=== PATIENT | male | born 1960 | race Caucasian/White ===

== ENCOUNTER → 2016-09-06 | Outpatient (CLI) | payer OTHER | END | disposition home or self-care (01) | LOC: NM 07:00 | DX: R10.11 Right upper quadrant pain (principal); R10.9 Unspecified abdominal pain; R11.0 Nausea; R11.10 Vomiting, unspecified ==

== ENCOUNTER → 2016-09-24 | Outpatient (CLI) | payer OTHER ==
[2016-09-24 10:04] LABS: BUN 10 mg/dl (7-24); EST GLOM FILT AFRICAN AMERICAN > 60 ml/min
== END | disposition home or self-care (01) ==
LOC: LAB 09:33 → CT 10:00
PROVIDERS: Family Medicine
DX: R10.2 Pelvic and perineal pain (principal); R10.9 Unspecified abdominal pain

== ENCOUNTER → 2019-08-03 | Outpatient (CLI) | payer BC | END | disposition home or self-care (01) | LOC: CARD 09:01 | DX: R06.09 Other forms of dyspnea (principal) ==

== ENCOUNTER 2019-08-08 08:31 | Inpatient (IN) | payer BC ==
[2019-08-08] VITALS (17 sets, daily range): BP systolic 106–127; BP diastolic 65–80
[~2019-08-08] VITALS: Ht 188 cm; Wt 97.6 kg
[2019-08-08 09:15] LABS: MEAN CELL VOLUME 81.7 fl (80.0-94.0); MEAN CORPUSCULAR HGB 21.7 pg (27.0-31.0); MEAN CORPUSCULAR HGB CONC 26.5 g/dl (33.0-37.0); MEAN PLATELET VOLUME 12.8 fl (9.6-12.3); NUCLEATED RED BLOOD CELL 0.3 % (0.0-0.0); PLATELET COUNT AUTOMATED 130 10*3/uL (130-400); WHITE BLOOD COUNT 6.3 10*3/uL (4.8-10.8)
[2019-08-08 09:29] LABS: HEMATOCRIT 19.6 % (42.0-52.0); HEMOGLOBIN 5.2 g/dl (14.0-18.0)
--- NOTE | 2019-08-08 09:30 | NUR ---
PT WITH H&H @ 5.2 & 19.6,DR TYLER NOTIFIED.
[2019-08-08 09:38] LABS: ALBUMIN 3.6 gm/dl (3.1-4.5); ALKALINE PHOSPHATASE 56 U/L (45-117); BUN 19 mg/dl (7-24); CHLORIDE 100 mmol/L (98-107); CREATININE 1.23 mg/dL (0.70-1.30); POTASSIUM 5.1 mmol/L (3.5-5.1); SGOT/AST 56 IU/L (3-35); SGPT/ALT 52 U/L (12-78); SODIUM 131 mmol/L (136-145); TOTAL PROTEIN 7.6 gm/dL (6.4-8.2)
[2019-08-08 09:44] LABS: PLATELET SUFFICIENCY NORMAL (NORMAL); TOTAL CELLS COUNTED 100 #CELLS
[2019-08-08 09:45] LABS: BURR CELLS FEW; OVALOCYTES FEW; POLYCHROMASIA SLIGHT; ROULEAUX SLIGHT; TARGET CELLS FEW
--- NOTE | 2019-08-08 09:48 | NUR ---
PHIL @ 0.193 DR. TYLER NOTIFIED.
[2019-08-08 09:49] LABS: TROPONIN I 0.193 ng/ml (<0.045)
[2019-08-08 10:05] LABS: ACT PARTIAL THROMBO TIME 24.8 SECONDS (20.0-32.1); INTERNATIONAL NORM RATIO 1.1 (2.0-3.5)
--- NOTE | 2019-08-08 11:43 | NUR ---
RESTING IN NO ACUTE DISTRESS. COUGH CONTINUES AFTER ROBITUSSIN AC. BLOOD INFUSING NOW AT 150 CC/HR. WILL CONTINUE TO MONITOR.
--- NOTE | 2019-08-08 12:02 | NUR ---
TRIPONIN @ 0.164, DR TYLER NOTIFIED.
--- NOTE | 2019-08-08 12:54 | NUR ---
LACTIC ACID @ 5.4, DR TYLER NOTIFIED.
--- NOTE | 2019-08-08 13:17 | NUR ---
CALL FROM NURSING CHEMIST INSTRUMENTATION. THEY ARE UNABLE TO TAKE PT IN THE ICU UNTIL ADJUSTMENTS ARE MADE WITH STAFFING.
--- NOTE | 2019-08-08 14:10 | NUR ---
A 58, admitted to ICCU, under the services of YESICA Mitchell DO with a diagnosis of GI BLEED, ACUTE PULMONARY EDEMA. Chief complaint is COUGH, SOB, CHEST PAIN. Patient arrived via stretcher from ER. Monitor applied. Initial assessment completed. Vital signs taken and recorded. YESICA MITCHELL DO notified of admission to the unit. Orders received. See assessment for past medical history, medications and allergies. Patient and/or family oriented to unit. [facility] ICCU visitation policy reviewed. Clothing/patient valuable form completed. JOSE CUNNINGHAM
[2019-08-08] MEDS ORDERED: GLUCOPHAGE500 M1 PO (14:23)
[2019-08-08] MEDS ORDERED: FLUTICASONE-SA1 EAC4 INH (14:48)
[2019-08-08] MEDS ORDERED: PROAIR HFA8.5 GM INH (14:48)
[2019-08-08] MEDS ORDERED: OMEPRAZOLE40 MG PO (14:49)
[2019-08-08] MEDS ORDERED: LISINOPRIL2.5 MG PO (14:49)
--- NOTE | 2019-08-08 14:54 | NUR ---
PT MEDICATED WITH ROBITUSSIN PO FOR CONTINUOUS COUGH.
[2019-08-08] MEDS ORDERED: IBUPROFEN IB200 M1 PO (15:02)
--- NOTE | 2019-08-08 15:09 | NUR ---
DR VALENZUELA MADE AWARE OF PT'S LACTIC ACID OF 4.6 AND TROPONIN OF 0.421
--- NOTE | 2019-08-08 15:22 | NUR ---
DR HIDALGO NOTIFIED OF CONSULT IN ER AND SAW PT THERE.
--- NOTE | 2019-08-08 15:26 | NUR ---
MESSAGE LEFT ON DR LUNA'S VOICE MAIL TO MAKE HIM AWARE OF NEW CONSULT.
--- NOTE | 2019-08-08 19:00 | NUR ---
I SPOKE WITH DR HIDALGO AND MADE HIM AWARE OF TROPONIN LEVEL OF 0.421. HE STATED HE BELIEVES IT IS BECAUSE OF HIS GI BLEED, NO FURTHER ORDERS AT THIS TIME.
--- NOTE | 2019-08-08 19:30 | NUR ---
2ND TRANSFUSION OF BLOOD COMPLETED AT THIS TIME. PATIENT TOLERATED WELL, AND IS CURRENTLY DENYING ANY COMPLAINTS. RN WILL MONITOR
[2019-08-08 20:02] LABS: BASO % 0.2 % (0.0-1.0); HEMATOCRIT 21.4 % (42.0-52.0); LYMPH # 0.8 10*3/uL (1.3-4.4); LYMPH % 12.3 % (27.0-41.0); MEAN CELL VOLUME 81.1 fl (80.0-94.0); MEAN CORPUSCULAR HGB 23.9 pg (27.0-31.0); MEAN CORPUSCULAR HGB CONC 29.4 g/dl (33.0-37.0); MEAN PLATELET VOLUME 11.5 fl (9.6-12.3); MONO # 0.8 10*3/uL (0.1-1.0); MONO % 12.7 % (3.0-9.0); NEUT # 4.9 10*3/uL (2.3-7.9); NEUT % 73.9 % (47.0-73.0); NUCLEATED RED BLOOD CELL 0.1 10*3/uL (0.0-0.0); NUCLEATED RED BLOOD CELL 0.9 % (0.0-0.0); PLATELET COUNT AUTOMATED 133 10*3/uL (130-400); RED BLOOD COUNT 2.64 10*6/uL (4.50-5.90); RED CELL DISTRI WIDTH 17.5 % (0-14.5); WHITE BLOOD COUNT 6.6 10*3/uL (4.8-10.8)
[2019-08-08 20:13] LABS: HEMOGLOBIN 6.3 g/dl (14.0-18.0)
--- NOTE | 2019-08-08 20:17 | NUR ---
DR ECHEVARRIA MADE AWARE OF CRITICAL LABS. ORDERS RECIEVED
[2019-08-08 20:25] LABS: PLATELET SUFFICIENCY LOW (NORMAL); TOTAL CELLS COUNTED 100 #CELLS
[2019-08-08 20:26] LABS: BUN 25 mg/dl (7-24); CHLORIDE 100 mmol/L (98-107); CREATININE 1.26 mg/dL (0.70-1.30); OVALOCYTES FEW; POLYCHROMASIA SLIGHT; POTASSIUM 4.2 mmol/L (3.5-5.1); SODIUM 131 mmol/L (136-145)
--- NOTE | 2019-08-08 21:05 | NUR ---
PATIENT MEDICATED WITH ROBITUSSIN PER DRS ORDERS FOR CONTINUED COUGH, WELL MORPHINE PER DRS ORDERS FOR PAIN IN THE CHEST FROM COUGHING. RN WILL MONITOR FOR RELIEF OF SYMPTOMS
[2019-08-08 21:15] LABS: HEMATOCRIT 21.2 % (42.0-52.0); MEAN CELL VOLUME 79.4 fl (80.0-94.0); MEAN CORPUSCULAR HGB 23.2 pg (27.0-31.0); MEAN CORPUSCULAR HGB CONC 29.2 g/dl (33.0-37.0); MEAN PLATELET VOLUME 11.7 fl (9.6-12.3); NUCLEATED RED BLOOD CELL 0.1 10*3/uL (0.0-0.0); NUCLEATED RED BLOOD CELL 0.7 % (0.0-0.0); PLATELET COUNT AUTOMATED 140 10*3/uL (130-400); RED BLOOD COUNT 2.67 10*6/uL (4.50-5.90); RED CELL DISTRI WIDTH 17.4 % (0-14.5); WHITE BLOOD COUNT 7.1 10*3/uL (4.8-10.8)
[2019-08-08 21:18] LABS: HEMOGLOBIN 6.2 g/dl (14.0-18.0)
[2019-08-08 21:37] LABS: PLATELET SUFFICIENCY NORMAL (NORMAL); TOTAL CELLS COUNTED 100 #CELLS
[2019-08-08 21:38] LABS: OVALOCYTES FEW; POLYCHROMASIA SLIGHT; TARGET CELLS FEW
[2019-08-09] VITALS (14 sets, daily range): BP systolic 96–128; BP diastolic 58–82
--- NOTE | 2019-08-09 00:05 | NUR ---
PATIENT MEDICATED WITH RESTORIL PER DRS ORDERS FOR COMPLAINTS OF SLEEPLESSNESS AND ALSO MEDICATED WITH ROBITUSSIN FOR CONTINUED COUGH. RN WILL MONITOR FOR RELIEF OF SYMPTOMS
--- NOTE | 2019-08-09 00:10 | NUR ---
3RD UNIT OF PRBC INITIATED AT THIS TIME. PATIENT INFORMED OF SIGNS AND SYMPTOMS OF TRANFUSION REACTION AND WHEN TO MAKE THE NURSE AWARE. TRANSFUSION CONSENT REMAINS ON THE CHART. BASELINE VITAL SIGNS OBATINED. BLOOD PRODUCT VERIFIED WITH 2 RNS AT THE BEDSIDE
--- NOTE | 2019-08-09 00:25 | NUR ---
NO SIGNS OR SYMPTOMS OF TRANSFUSION REACTION. PATIENT DENIES COMPLAINTS. BLOOD TITRATED PER POLICY. PATIENT TOLERATING WELL. RN WILL CONTINUE TO MONITOR
--- NOTE | 2019-08-09 00:44 | NUR ---
RESPIRATORY CALLED REGARDING BREATHING TREATMENT.
--- NOTE | 2019-08-09 00:49 | NUR ---
RESPIRATORY IN WITH PATIENT, RECIEVEING BREATHING TREATMENT AT THIS TIME
--- NOTE | 2019-08-09 02:59 | NUR ---
3RD UNIT OF PRBC COMPLETED AT THIS TIME, VITAL SIGNS REMAIN STABLE AND PATIENT DENIES ANY SIGNS OR SYMPTOMS OF TRANSFUSION REACTION. WILL MONITOR
[2019-08-09 05:52] LABS: HEMATOCRIT 23.6 % (42.0-52.0); MEAN CELL VOLUME 79.7 fl (80.0-94.0); MEAN CORPUSCULAR HGB 23.6 pg (27.0-31.0); MEAN CORPUSCULAR HGB CONC 29.7 g/dl (33.0-37.0); NUCLEATED RED BLOOD CELL 0.1 10*3/uL (0.0-0.0); NUCLEATED RED BLOOD CELL 1.2 % (0.0-0.0); PLATELET COUNT AUTOMATED 140 10*3/uL (130-400); RED BLOOD COUNT 2.96 10*6/uL (4.50-5.90); RED CELL DISTRI WIDTH 17.6 % (0-14.5); WHITE BLOOD COUNT 7.7 10*3/uL (4.8-10.8)
[2019-08-09 06:06] LABS: INTERNATIONAL NORM RATIO 1.1 (2.0-3.5)
[2019-08-09 06:10] LABS: ALBUMIN 3.2 gm/dl (3.1-4.5); BUN 21 mg/dl (7-24); CHLORIDE 100 mmol/L (98-107); POTASSIUM 4.1 mmol/L (3.5-5.1); SODIUM 131 mmol/L (136-145)
[2019-08-09 06:16] LABS: ALKALINE PHOSPHATASE 52 U/L (45-117); CHOLESTEROL 130 mg/dL (<200); CREATININE 0.91 mg/dL (0.70-1.30); HDL CHOLESTEROL 35 mg/dl (40-60); LDL CHOLESTEROL 78 mg/dL (9-159); PHOSPHOROUS 3.3 mg/dL (2.5-4.9); SGOT/AST 44 IU/L (3-35); SGPT/ALT 47 U/L (12-78); THYROID STIM HORMONE (HS) 0.834 uIU/ml (0.358-4.75); TRIGLYCERIDES 86 mg/dl (<150); VLDL CHOLESTEROL 17 mg/dL (6-40)
[2019-08-09 06:18] LABS: FREE T4 1.13 ng/dl (0.76-1.46)
[2019-08-09 07:15] LABS: MICROCYTOSIS SLIGHT; OVALOCYTES FEW; PLATELET SUFFICIENCY NORMAL (NORMAL); POLYCHROMASIA SLIGHT; TOTAL CELLS COUNTED 100 #CELLS
[2019-08-09 07:18] LABS: TARGET CELLS FEW
--- NOTE | 2019-08-09 07:34 | NUR ---
Shift chart check completed. DR VALENZUELA HERE AND UPDATED ON AM LAB RESULTS
[2019-08-09 08:00] LABS: VITAMIN D, 25-HYDROXY 17.3 ng/mL (30-100)
--- NOTE | 2019-08-09 09:04 | NUR ---
RESTING IN BED WITH FREQ HARSH NONPROD COUGHING. IV LASIX EFFECTIVE BUT URINE IS CURRENTLY GERHARD IN COLOR..AM ASSESSMENT COMPLETED WITH FINE PB CRACKLES & EX WHEEZE. TRACE BLE EDEMA. REF JAMES AT THIS TIME - MOVING LEGS FREQ.
--- NOTE | 2019-08-09 09:54 | NUR ---
DR FERRERA & DR DC ROUNDED
--- NOTE | 2019-08-09 10:09 | NUR ---
VISTARIL TO HELP W/ ANXIETY D/T COUGH & NO SLEEP --- TYLENOL FOR C/O HEADACHE
--- NOTE | 2019-08-09 11:30 | NUR ---
DOZING LIGHTLY AFTER HYDRALIZINE & TYLENOL
--- NOTE | 2019-08-09 12:11 | NUR ---
ROBITUSSIN AC GIVEN FOR CONTINUED COUGH CAUSING SOB & INABILITY TO SLEEP. DISCUSSED OTHER MEDICATIONS AND WHEN WE WILL TRY THEM IF NECESSARY - COUGH IS DRY NONPROD
--- NOTE | 2019-08-09 12:52 | NUR ---
MEDICATED WITH MORPHINE & ZOFRAN FOR CONTUNED COUGHING & NO SLEEP. AT BEDSIDE.
[2019-08-09 14:37] LABS: RETICULOCYTE % 3.18 % (0.50-2.50)
--- NOTE | 2019-08-09 14:44 | NUR ---
SLEEPING (VERY LIGHT SLEEPER) AND COUGHING MUCH LESS SINCE MORPHINE & ZOFRAN
--- NOTE | 2019-08-09 16:25 | NUR ---
HYDRALAZINE GIVEN TO KEEP ANXIETY DOWN & KEEP COUGH TO A LESSER EXTENT. BIG IMPROVEMENT SINCE MORPHINE EARLIER
--- NOTE | 2019-08-09 17:49 | NUR ---
BLOOD STARTED PER ORDER FROM DR LUNA - 1 UNIT TO BE GIVEN TODAY - STARTED IN NEW IV SITE WITH GOOD BLOOD RETURN
--- NOTE | 2019-08-09 18:22 | NUR ---
NO REACTION FROM BLOOD TRANSFUSION - SITE REMAINS ASYMPTOMATIC
--- NOTE | 2019-08-09 20:49 | NUR ---
PATIENT UP TO BEDSIDE COMMODE, HAS HAD SEVERAL LIQUID BROWN BOWEL MOVMENTS. REQUESTING RN TO WAIT FOR PM PILLS UNTIL LATER ON D/T FREQUENTLY HAVING TO GET UP.
--- NOTE | 2019-08-09 21:41 | NUR ---
PATIENT MEDICATED WITH MORPHINE, RESTORIL, AND ROBITUSSIN AC PER DRS ORDERS FOR MULTIPLE COMPLAINTS INCLUDING COUGH, PAIN TO THE CHEST WALL FROM COUGHING, AND INABLITITY TO REST SOUNDLY. RN WILL MONITOR FOR RELIEF
[2019-08-10] VITALS (9 sets, daily range): BP systolic 107–128; BP diastolic 51–82
--- NOTE | 2019-08-10 03:30 | NUR ---
Patient resting quietly with no c/o discomfort. Respirations easy and regular. Vital signs stable. No signs or symptoms of distress. Earlier medications seem to have been effective at reducing the patients complaints. FRANCISCO KIM
[2019-08-10 04:57] LABS: HEMATOCRIT 26.3 % (42.0-52.0); HEMOGLOBIN 7.9 g/dl (14.0-18.0); MEAN CELL VOLUME 82.7 fl (80.0-94.0); MEAN CORPUSCULAR HGB 24.8 pg (27.0-31.0); PLATELET COUNT AUTOMATED 135 10*3/uL (130-400); RED BLOOD COUNT 3.18 10*6/uL (4.50-5.90); RED CELL DISTRI WIDTH 17.7 % (0-14.5); WHITE BLOOD COUNT 8.6 10*3/uL (4.8-10.8)
[2019-08-10 05:07] LABS: ALBUMIN 3.1 gm/dl (3.1-4.5); BUN 18 mg/dl (7-24); CHLORIDE 101 mmol/L (98-107); CREATININE 0.95 mg/dL (0.70-1.30); IRON 17 ug/dL (65-175); POTASSIUM 4.1 mmol/L (3.5-5.1); SGOT/AST 44 IU/L (3-35); SGPT/ALT 46 U/L (12-78); SODIUM 132 mmol/L (136-145); TOTAL IRON BINDING CAPACITY 475 ug/dl (250-450)
[2019-08-10 05:09] LABS: ALKALINE PHOSPHATASE 49 U/L (45-117); TOTAL PROTEIN 7.1 gm/dL (6.4-8.2)
[2019-08-10 05:25] LABS: TOTAL CELLS COUNTED 100 #CELLS
[2019-08-10 05:26] LABS: OVALOCYTES FEW; PLATELET SUFFICIENCY LOW (NORMAL)
--- NOTE | 2019-08-10 07:37 | NUR ---
VISTARIL & ROBITUSSIN AC GIVEN FOR COUGH.. THEY REALLY HELP PER PATIENT. LIQ BM (BROWN COLOR) AFTER FLEET ENEMA..UP TO BSC WITHOUT HELP.
--- NOTE | 2019-08-10 08:30 | NUR ---
DR ADRIÁN KELLER
--- NOTE | 2019-08-10 09:00 | NUR ---
Aircraft Load Controller in to talk to patient. Patient states lives at home with his . There are 4 steps in the home. Physician: Dr. Sumeet Sinha Pharmacy: [facility] Home health services: none Patient's level of ADLs: INDEPENDENT Patient has working utilities: yes DME: none Follow-up physician's appointment after d/c: will be made by the hospitalist nurse director upon discharge Does patient want to access PORTAL?: no Discharge plan discussed with patient. He lives at home with his . He is independent in his ADLs and ambulation. Discussed home health care services and he denies any home needs at this time. When medically stable he will be discharged to home. His will provide transportation on discharge. Treating pneumonia with rocephin and zithromax. Hgb 7.9 after 4 units PRBCs. SUZY BARCLAY
--- NOTE | 2019-08-10 09:05 | NUR ---
DR LUNA MADE AWARE OF AM LABS & PATIENT READY FOR EGD/COLO
--- NOTE | 2019-08-10 09:24 | NUR ---
DR VANDA KELLER
--- NOTE | 2019-08-10 11:18 | NUR ---
DR DC CALLED WITH CXR RESULTS - HE WILL LOOK AT IT HIMSELF & CALL IF ANY CHANGES NEED TO BE MADE - PATIENT CALLED OUT AFTER HAVING SOME GREEN/YELLOW MUCOID BOWEL OUTPUT
--- NOTE | 2019-08-10 11:54 | NUR ---
YELLOW/BROWN LIQ AFTER ENEMA
--- NOTE | 2019-08-10 14:49 | NUR ---
PT RETURNED FROM SURGERY AFTER EGD/COLO - AAOX3 WITH NO C/O. VSS
--- NOTE | 2019-08-10 15:06 | NUR ---
HYDRALAZINE & ROBITUSSIN AC GIVEN
--- NOTE | 2019-08-10 15:48 | NUR ---
MORPHINE GIVEN FOR INCREASED COUGH AND UNABLE TO CATCH BREATH S/P EGD/COLO
--- NOTE | 2019-08-10 16:38 | NUR ---
BREATHING BETTER SINCE MORPHINE - ABLE TO EAT & TALK WITHOUT COUGHING
--- NOTE | 2019-08-10 18:43 | NUR ---
MOVED TO 520 WITH ALL BELONGINGS - PRESENT
--- NOTE | 2019-08-10 19:59 | NUR ---
24 HR chart check completed.
--- NOTE | 2019-08-10 20:00 | NUR ---
DR APPIAH HERE TO ASSESS PATIENT AND DISCUSS PLAN OF CARE. DR APPIAH AND DR ECHEVARRIA DISCUSSING PLAN OF CARE AT NURSES STATION
--- NOTE | 2019-08-10 20:00 | NUR ---
SITTING UP IN BED. RESPIRATIONS EASY. LUNGS DIMINISHED WITH TIGHT WHEEZES. PULSE OX 93% 5L, HUMIDIFICATION APPLIED. HARSH HACKY COUGH. TRACE BLE EDEMA. CALL LIGHT WITHIN REACH. NO VOICED COMPLAINTS
--- NOTE | 2019-08-10 20:55 | NUR ---
MEDICATED WITH RESTORIL AND VISTARIL TO ASSIST WITH SLEEP AND ANXIETY. ALSO PROVIDED WITH ROBITUSSIN AC FOR COUGH. WILL MONITOR
--- NOTE | 2019-08-10 23:13 | NUR ---
STATES MINIMAL EFFECTIVENESS FROM EARLIER MEDS. REQUESTED AND RECEIVED MORPHINE PER PRN ORDER TO ASSIST WITH RESP COMFORT. CALL LIGHT WITHIN REACH. WILL MONITOR FOR EFFECTIVENESS
[2019-08-11] VITALS: BP 111/73
--- NOTE | 2019-08-11 | NUR ---
MEDS APPEAR EFFECTIVE. SLEEPING. RESPIRATIONS EASY. VSS. PULSE OX 93% 5L HUMIDIFIED. CALL LIGHT WITHIN REACH.
--- NOTE | 2019-08-11 05:26 | NUR ---
AWAKE. HARSH HACKY COUGH, TIGHT. MEDICATED WITH ROBITUSSIN AC, VISTARIL, AND MORPHINE PER PRN TO ASSIST WITH RESPIRATORY DISTRESS. RESP PAGED FOR BREATHING TREATMENT. WILL MONITOR
[2019-08-11 06:21] LABS: HEMATOCRIT 28.8 % (42.0-52.0); HEMOGLOBIN 8.5 g/dl (14.0-18.0); MEAN CORPUSCULAR HGB 24.8 pg (27.0-31.0); MEAN CORPUSCULAR HGB CONC 29.5 g/dl (33.0-37.0); MEAN PLATELET VOLUME 11.6 fl (9.6-12.3); NUCLEATED RED BLOOD CELL 0.3 % (0.0-0.0); PLATELET COUNT AUTOMATED 156 10*3/uL (130-400); RED BLOOD COUNT 3.43 10*6/uL (4.50-5.90); RED CELL DISTRI WIDTH 19.2 % (0-14.5); WHITE BLOOD COUNT 9.4 10*3/uL (4.8-10.8)
--- NOTE | 2019-08-11 06:30 | NUR ---
SITTING UP IN BED, STATES RELIEF FROM EARLIER MEDS. O2 IN USE AT 5L. CALL LIGHT WITHIN REACH. NO VOICED COMPLAINTS
[2019-08-11 06:45] LABS: ALBUMIN 3.2 gm/dl (3.1-4.5); ALKALINE PHOSPHATASE 57 U/L (45-117); BUN 26 mg/dl (7-24); CHLORIDE 103 mmol/L (98-107); CREATININE 1.23 mg/dL (0.70-1.30); SGOT/AST 50 IU/L (3-35); SGPT/ALT 50 U/L (12-78); SODIUM 134 mmol/L (136-145); TOTAL PROTEIN 7.3 gm/dL (6.4-8.2)
[2019-08-11 07:03] LABS: TOTAL CELLS COUNTED 100 #CELLS
[2019-08-11 07:04] LABS: PLATELET SUFFICIENCY NORMAL (NORMAL); POLYCHROMASIA SLIGHT; SCHISTOCYTES FEW
[2019-08-11 08:00] VITALS: BP 132/87
--- NOTE | 2019-08-11 11:30 | NUR ---
PT MEDICATED WITH PRN VISTARIL AND ROBITUSSIN FOR C/O CONTINUED COUGH AND ANXIETY. WILL MONITOR.
--- NOTE | 2019-08-11 12:14 | NUR ---
ATTEMPTED TO CALL DR DE LOS SANTOS TO INFORM HIM OF PATIENT WANTING TO BE OFF THE LABORATORY ASST WITH NO ANSWER. MONITOR DC'D AT THIS TIME BY PATIENT.
--- NOTE | 2019-08-11 12:53 | NUR ---
PATIENT TOOK MONITOR OFF AND STATES THE TOLD HIM HE COULD. DR. DE LOS SANTOS AWARE AND IS "FIGURING OUT" IF THE PATIENT WILL NOW BE MED-SURG OR NOT.
[2019-08-11 16:00] VITALS: BP 135/75
[2019-08-11 20:00] VITALS: BP 127/71
--- NOTE | 2019-08-11 20:03 | NUR ---
VISTARIL GIVEN PER PATIENT REQUEST FOR COMPLAINTS OF ANXIETY. WILL ASSESS EFFECTIVENESS.
--- NOTE | 2019-08-11 21:00 | NUR ---
VISTARIL EFFECTIVE PER PATIENT. WILL CONTINUE TO MONITOR.
--- NOTE | 2019-08-11 21:39 | NUR ---
ROBITUSSIN AND MORPHINE GIVEN PER PATIENT REQUEST FOR COMPLAINTS OF COUGHING AND BODY/CHEST PAINS FROM COUGHING RATED 7/10. WILL ASSESS EFFECTIVENESS.
--- NOTE | 2019-08-11 22:25 | NUR ---
ROBITUSSIN AND MORPHINE EFFECTIVE PER PATIENT. WILL CONTINUE TO MONITOR.
[2019-08-12] VITALS (11 sets, daily range): BP systolic 108–143; BP diastolic 71–84
--- NOTE | 2019-08-12 00:29 | NUR ---
Patient resting quietly with no c/o discomfort. Respirations easy and regular. Vital signs stable. No overt distress. KATHY MUÑOZ
--- NOTE | 2019-08-12 04:53 | NUR ---
PT AWOKEN FROM A RESTLESS DREAM. MEDICATED W/VISTARIL FOR C/O ANXIETY AND ROBITUSSIN W/CODEINE FOR COUGH. BED LINENS AND O2 ADJUSTED. PT RESTING QUIETLY IN BED AT THIS TIME. CALL LIGHT IN REACH.
[2019-08-12 06:12] LABS: HEMATOCRIT 27.9 % (42.0-52.0); HEMOGLOBIN 8.4 g/dl (14.0-18.0); LYMPH # 0.9 10*3/uL (1.3-4.4); LYMPH % 10.8 % (27.0-41.0); MEAN CELL VOLUME 83.5 fl (80.0-94.0); MEAN CORPUSCULAR HGB 25.1 pg (27.0-31.0); MEAN CORPUSCULAR HGB CONC 30.1 g/dl (33.0-37.0); MEAN PLATELET VOLUME 11.4 fl (9.6-12.3); MONO % 10.9 % (3.0-9.0); NEUT # 6.7 10*3/uL (2.3-7.9); NEUT % 77.4 % (47.0-73.0); NUCLEATED RED BLOOD CELL 0.2 % (0.0-0.0); PLATELET COUNT AUTOMATED 131 10*3/uL (130-400); RED BLOOD COUNT 3.34 10*6/uL (4.50-5.90); RED CELL DISTRI WIDTH 20.1 % (0-14.5); WHITE BLOOD COUNT 8.7 10*3/uL (4.8-10.8)
--- NOTE | 2019-08-12 06:30 | NUR ---
PATIENT REQUESTED ONLY 10 UNITS OF INSULIN VERSUS THE SLIDING SCALE AMOUNT OF 15 UNITS FOR A BLOOD SUGAR OF 305. PATIENT STATED HE ONLY WANTED THE 10 BECAUSE HE WAS NPO THROUGHOUT THE NIGHT FOR HIS BRONCHOSCOPY TODAY. 10 UNITS OF INSULIN GIVEN PER PATIENT REQUEST.
[2019-08-12 06:35] LABS: BUN 27 mg/dl (7-24); CHLORIDE 106 mmol/L (98-107); CREATININE 1.01 mg/dL (0.70-1.30); POTASSIUM 3.8 mmol/L (3.5-5.1); SODIUM 140 mmol/L (136-145)
--- NOTE | 2019-08-12 06:43 | NUR ---
PATIENT LEFT THE FLOOR FOR PROCEDURE.
--- NOTE | 2019-08-12 08:30 | NUR ---
VITAL SIGNS STABLE. PT IS ARRIVED BACK TO FLOOR FROM RECIEVING A BRONCOSCOPY. PT IS A&Ox3. PLEASANT AND COOPERATIVE. TERA. HEART SOUNDS ARE NORMAL. LUNGS ARE CLEAR THROUGHOUT. PT DOES HAVE MILD DYSPNEA ON EXERTION. CURRENLTY ON 3 LITERS OF HUMIDIFIED O2 VIA NASAL CANNULA. THE PATIENT DOES HAVE A HARSH NON PRODUCTIVE COUGH AT THIS TIME. ABDOMEN IS SOFT, NON TENDER AND NON DISTENDED. BOWEL SOUNDS x4. SKIN IS INTACT PINK, WARM, DRY AND NON TENTING. 20G IV IN THE LEFT HAND, NO REDNESS OR EDEMA TO THE SITE. PT HAS NO COMPLAINTS AT THIS TIME. WILL CONTINUE TO ASSESS. RUY DIAMOND SPCHETCC
--- NOTE | 2019-08-12 09:00 | NUR ---
Desizing Machine Operator in to see patient. No new needs or request at this time. He denies any home needs. He had a bronchoscopy this am. When medically stable he will be discharged to home.
--- NOTE | 2019-08-12 10:42 | NUR ---
PT RESTING IN BED WATCHING TELEVISION. NO COMPLAINTS AT THIS TIME. WILL CONTINUE TO MONITOR. RUY LANDA.
--- NOTE | 2019-08-12 10:54 | NUR ---
ROBITUSSIN 10MG/5ML PO AND VISTARIL 25MG PO WERE GIVEN FOR COMPLAINTS OF A COUGH. WILL CONTINUE TO EVALUATE EFFECTIVENESS. RUY SUNSHINECC.
--- NOTE | 2019-08-12 10:54 | NUR ---
ROBITUSSIN AND VISTARIL GIVEN FOR COMPLAINTS OF COUGHING. WILL ASSESS EFFECTIVENESS. RUY LANDA.
--- NOTE | 2019-08-12 11:55 | NUR ---
PER PATIENT THE ROBITUSSIN AND VISTARIL HAVE BEEN EFFECTIVE. WILL CONTINUE TO ASSESS. RUY LANDA.
--- NOTE | 2019-08-12 13:17 | NUR ---
PATIENT IS AWAKE AND SITTING UP IN BED. CONTINUES TO WATCH TELEVISION. NO COMPLAINTS. RUY SUNSHINECC.
--- NOTE | 2019-08-12 19:45 | NUR ---
VISTARIL GIVEN PER PATIENT REQUEST FOR COMPLAINTS OF ANXIETY. WILL ASSESS EFFECTIVENESS.
--- NOTE | 2019-08-12 20:40 | NUR ---
VISTARIL EFFECTIVE PER PATIENT.
--- NOTE | 2019-08-12 21:37 | NUR ---
MORPHINE AND ROBITUSSIN GIVEN PER PATIENT REQUEST FOR COMPLAINTS OF PAIN IN BACK AND CHEST FROM COUGHIN RATED 8/10 AND ROBITUSSIN FOR COUGHING. WILL ASSESS EFFECTIVENESS.
--- NOTE | 2019-08-12 22:20 | NUR ---
MORPHINE AND ROBITUSSIN EFFECTIVE PER PATIENT. PAIN RATED 3/10.
[2019-08-13] VITALS: BP 136/76
--- NOTE | 2019-08-13 02:37 | NUR ---
Patient resting quietly with no c/o discomfort. Respirations easy and regular. Vital signs stable. No overt distress. KATHY MUÑOZ
--- NOTE | 2019-08-13 05:36 | NUR ---
ROBITUSSIN GIVEN PER PATIENT REQUEST FOR COMPLAINTS OF COUGHING. WILL ASSESS EFFECTIVENESS.
--- NOTE | 2019-08-13 06:49 | NUR ---
ROBITUSSIN EFFECTIVE PER PATIENT.
[2019-08-13 08:00] VITALS: BP 130/78
[2019-08-13 08:33] LABS: EOS # 0.1 10*3/uL (0.0-0.4); EOS % 1.1 % (1.0-4.0); HEMOGLOBIN 9.2 g/dl (14.0-18.0); LYMPH % 27.7 % (27.0-41.0); MEAN CELL VOLUME 84.2 fl (80.0-94.0); MEAN CORPUSCULAR HGB CONC 29.7 g/dl (33.0-37.0); MEAN PLATELET VOLUME 11.6 fl (9.6-12.3); MONO # 0.7 10*3/uL (0.1-1.0); MONO % 9.8 % (3.0-9.0); NEUT # 4.5 10*3/uL (2.3-7.9); NEUT % 60.9 % (47.0-73.0); PLATELET COUNT AUTOMATED 120 10*3/uL (130-400); RED BLOOD COUNT 3.68 10*6/uL (4.50-5.90); RED CELL DISTRI WIDTH 20.7 % (0-14.5); WHITE BLOOD COUNT 7.3 10*3/uL (4.8-10.8)
[2019-08-13 08:42] LABS: BUN 21 mg/dl (7-24); CHLORIDE 105 mmol/L (98-107); POTASSIUM 3.6 mmol/L (3.5-5.1); SODIUM 141 mmol/L (136-145)
--- NOTE | 2019-08-13 09:00 | NUR ---
Parachute Crown Sewer in to see patient. No new needs or request at this time. He denies any home needs. He states "the doctor was just in here and ordered a chest x-ray and as long as it is ok I will get to go home today." When medically stable he will be discharged to home.
[2019-08-13] MEDS ORDERED: PREDNISONE10 MG PO (11:38)
[2019-08-13] MEDS ORDERED: NATURE'S BLEND F1 MG PO (11:38)
[2019-08-13] MEDS ORDERED: AVPAK AZITHROM250 MG PO (11:38)
[2019-08-13] MEDS ORDERED: LASIX40 MG PO (11:38)
[2019-08-13] MEDS ORDERED: VITAMIN D32000 UNI1 PO (11:38)
[2019-08-13] MEDS ORDERED: FERROUS SULFAT324 M2 PO (11:41)
[2019-08-13 12:00] VITALS: BP 128/76
--- NOTE | 2019-08-13 14:01 | NUR ---
Discharge instructions reviewed with patient/family. Patient receptive and verbalizes understanding. Follow-up care arranged. Written instructions given to patient/family. BETH DOLAN
[2019-08-13 17:09] LABS: ACID FAST SPEC PROCESSING Concentration (.)
[2019-08-14 11:06] LABS: BF LYMPHOCYTES 9 %; BF MACROPHAGES 50 %; BF NEUTROPHILS 39 %
== END 2019-08-13 14:02 | disposition home or self-care (01) | DRG 871 ==
LOC: ED 08:31 → 5E 12:07 → ICCU 12:07 → EDHOLD 12:07 → ICCU 12:21 → 5E 08-10 18:57
PROVIDERS: Emergency Medicine; Family Medicine; Hospitalist; Internal Medicine; Internal Medicine Critical Care Medicine; Internal Medicine Gastroenterology; Student in an Organized Health Care Education/Training Program; ADMIT Internal Medicine
PROC: 30233N1 Transfusion of Nonautologous Red Blood Cells into Peripheral Vein, Percutaneous Approach (ICD-10-PCS; principal; 2019-08-08)
PROC: 0DB78ZX Excision of Stomach, Pylorus, Via Natural or Artificial Opening Endoscopic, Diagnostic (ICD-10-PCS; 2019-08-10)
PROC: 0DBP8ZZ Excision of Rectum, Via Natural or Artificial Opening Endoscopic (ICD-10-PCS; 2019-08-10)
PROC: 0B988ZZ Drainage of Left Upper Lobe Bronchus, Via Natural or Artificial Opening Endoscopic (ICD-10-PCS; 2019-08-12)
PROC: 0B968ZZ Drainage of Right Lower Lobe Bronchus, Via Natural or Artificial Opening Endoscopic (ICD-10-PCS; 2019-08-12)
PROC: 0B938ZZ Drainage of Right Main Bronchus, Via Natural or Artificial Opening Endoscopic (ICD-10-PCS; 2019-08-12)
PROC: 0B948ZZ Drainage of Right Upper Lobe Bronchus, Via Natural or Artificial Opening Endoscopic (ICD-10-PCS; 2019-08-12)
PROC: 0B998ZZ Drainage of Lingula Bronchus, Via Natural or Artificial Opening Endoscopic (ICD-10-PCS; 2019-08-12)
PROC: 0B9B8ZZ Drainage of Left Lower Lobe Bronchus, Via Natural or Artificial Opening Endoscopic (ICD-10-PCS; 2019-08-12)
PROC: 0B9C8ZX Drainage of Right Upper Lung Lobe, Via Natural or Artificial Opening Endoscopic, Diagnostic (ICD-10-PCS; 2019-08-12)
PROC: 0B918ZZ Drainage of Trachea, Via Natural or Artificial Opening Endoscopic (ICD-10-PCS; 2019-08-12)
PROC: 0B958ZZ Drainage of Right Middle Lobe Bronchus, Via Natural or Artificial Opening Endoscopic (ICD-10-PCS; 2019-08-12)
PROC: 0B978ZZ Drainage of Left Main Bronchus, Via Natural or Artificial Opening Endoscopic (ICD-10-PCS; 2019-08-12)
DX: A41.9 Sepsis, unspecified organism (principal); J18.9 Pneumonia, unspecified organism; I50.23 Acute on chronic systolic (congestive) heart failure; I21.A1 Myocardial infarction type 2; J96.01 Acute respiratory failure with hypoxia; K29.21 Alcoholic gastritis with bleeding; K57.91 Diverticulosis of intestine, part unspecified, without perforation or abscess with bleeding; E87.1 Hypo-osmolality and hyponatremia; E87.2 Acidosis; J44.1 Chronic obstructive pulmonary disease with (acute) exacerbation; J44.0 Chronic obstructive pulmonary disease with (acute) lower respiratory infection; J45.901 Unspecified asthma with (acute) exacerbation; R91.8 Other nonspecific abnormal finding of lung field; E83.42 Hypomagnesemia; I11.0 Hypertensive heart disease with heart failure; Z96.643 Presence of artificial hip joint, bilateral; R65.20 Severe sepsis without septic shock; E11.65 Type 2 diabetes mellitus with hyperglycemia; D50.9 Iron deficiency anemia, unspecified; D12.8 Benign neoplasm of rectum; T38.0X5A Adverse effect of glucocorticoids and synthetic analogues, initial encounter; Y92.89 Other specified places as the place of occurrence of the external cause; Z82.49 Family history of ischemic heart disease and other diseases of the circulatory system; Z79.899 Other long term (current) drug therapy; Z87.891 Personal history of nicotine dependence

== ENCOUNTER → 2020-04-19 | Outpatient (CLI) | payer BC ==
[~2020-04-19] MED LIST: AVPAK AZITHROM250 MG PO; FERROUS SULFAT324 M2 PO; FLUTICASONE-SA1 EAC4 INH; GLUCOPHAGE500 M1 PO; IBUPROFEN IB200 M1 PO; LASIX40 MG PO; LISINOPRIL2.5 MG PO; NATURE'S BLEND F1 MG PO; OMEPRAZOLE40 MG PO; PREDNISONE10 MG PO; PROAIR HFA8.5 GM INH; VITAMIN D32000 UNI1 PO
[2020-04-19 14:57] LABS: BASO % 0.3 % (0.0-1.0); EOS % 0.3 % (1.0-4.0); HEMATOCRIT 32.8 % (42.0-52.0); LYMPH # 0.7 10*3/uL (1.3-4.4); LYMPH % 18.9 % (27.0-41.0); MEAN CELL VOLUME 88.2 fl (80.0-94.0); MEAN CORPUSCULAR HGB 27.2 pg (27.0-31.0); MEAN CORPUSCULAR HGB CONC 30.8 g/dl (33.0-37.0); MEAN PLATELET VOLUME 11.9 fl (9.6-12.3); MONO # 0.7 10*3/uL (0.1-1.0); MONO % 17.8 % (3.0-9.0); NEUT # 2.3 10*3/uL (2.3-7.9); NEUT % 62.2 % (47.0-73.0); PLATELET COUNT AUTOMATED 114 10*3/uL (130-400); RED BLOOD COUNT 3.72 10*6/uL (4.50-5.90); RED CELL DISTRI WIDTH 14.8 % (0-14.5); RETICULOCYTE % 1.77 % (0.50-2.50); WHITE BLOOD COUNT 3.7 10*3/uL (4.8-10.8)
[2020-04-19 15:13] LABS: ALBUMIN 3.2 gm/dl (3.1-4.5); ALKALINE PHOSPHATASE 72 U/L (45-117); BUN 15 mg/dl (7-24); CHLORIDE 100 mmol/L (98-107); CHOLESTEROL 155 mg/dL (<200); CREATININE 0.96 mg/dL (0.70-1.30); GAMMA GLUTAMYL TRANSPEPTIDASE 557 U/L (15-85); HDL CHOLESTEROL 38 mg/dl (40-60); IRON 38 ug/dL (65-175); LDL CHOLESTEROL 80 mg/dL (9-159); POTASSIUM 4.3 mmol/L (3.5-5.1); SGOT/AST 87 IU/L (3-35); SGPT/ALT 85 U/L (12-78); SODIUM 132 mmol/L (136-145); TOTAL IRON BINDING CAPACITY 479 ug/dl (250-450); TOTAL PROTEIN 7.7 gm/dL (6.4-8.2); TRIGLYCERIDES 183 mg/dl (<150); VLDL CHOLESTEROL 37 mg/dL (6-40)
[2020-04-19 15:32] LABS: VITAMIN D, 25-HYDROXY 41.8 ng/mL (30-100)
== END | disposition home or self-care (01) ==
LOC: LAB 13:57
PROVIDERS: Family Medicine
DX: E11.9 Type 2 diabetes mellitus without complications (principal); R79.89 Other specified abnormal findings of blood chemistry; R53.83 Other fatigue; R74.8 Abnormal levels of other serum enzymes; E55.9 Vitamin D deficiency, unspecified; E78.5 Hyperlipidemia, unspecified

== ENCOUNTER 2020-10-10 14:35 | Observation (INO) | payer BC ==
[~2020-10-10] VITALS: Ht 187.9 cm; Wt 101.3 kg
[2020-10-10] VITALS (20 sets, daily range): BP systolic 134–172; BP diastolic 62–89
[~2020-10-10 14:35] MED LIST changes: -CARAFATE1 G1 PO; -Carafate1 GM PO
[2020-10-10 15:04] LABS: HEMATOCRIT 22.4 % (42.0-52.0); MEAN CELL VOLUME 80.6 fl (80.0-94.0); MEAN CORPUSCULAR HGB 21.6 pg (27.0-31.0); MEAN CORPUSCULAR HGB CONC 26.8 g/dl (33.0-37.0); MEAN PLATELET VOLUME 11.7 fl (9.6-12.3); PLATELET COUNT AUTOMATED 115 10*3/uL (130-400); RED BLOOD COUNT 2.78 10*6/uL (4.50-5.90); RED CELL DISTRI WIDTH 18.6 % (0-14.5); WHITE BLOOD COUNT 4.6 10*3/uL (4.8-10.8)
[2020-10-10 15:16] LABS: ACT PARTIAL THROMBO TIME 25.8 SECONDS (20.0-32.1); INTERNATIONAL NORM RATIO 1.1 (2.0-3.5)
[2020-10-10 15:21] LABS: ALBUMIN 3.2 gm/dl (3.1-4.5); ALKALINE PHOSPHATASE 70 U/L (45-117); BUN 17 mg/dl (7-24); CHLORIDE 108 mmol/L (98-107); POTASSIUM 3.8 mmol/L (3.5-5.1); SGOT/AST 37 IU/L (3-35); SGPT/ALT 56 U/L (12-78); SODIUM 140 mmol/L (136-145)
[2020-10-10 15:37] LABS: PLATELET SUFFICIENCY LOW (NORMAL); STOMATOCYTE FEW; TOTAL CELLS COUNTED 100 #CELLS
[2020-10-10 15:38] LABS: MICROCYTOSIS MODERATE; POLYCHROMASIA SLIGHT
[2020-10-10 17:42] LABS: IRON 58 ug/dL (65-175); TOTAL IRON BINDING CAPACITY 558 ug/dl (250-450)
[2020-10-10] MEDS ORDERED: Carafate1 GM PO (19:45)
[2020-10-10 19:47] LABS: BILIRUBIN Negative (Negative); BLOOD Negative (Negative); CLARITY Clear (Clear); COLOR Yellow (Yellow); GLUCOSE Negative (Negative); KETONE Negative (Negative); LEUKO ESTERASE Negative (Negative); NITRITE Negative (Negative); UROBILINOGEN 0.2 E.U./dl (0.0-1.0)
[2020-10-10 20:08] LABS: EPITHELIAL CELLS 0-2; RBC 0-2 rbc/hpf (0-2); WBC 0-2 wbc/hpf (0-5)
[2020-10-10 20:09] LABS: BACTERIA TRACE
[2020-10-10 22:08] LABS: BASO % 0.5 % (0.0-1.0); EOS # 0.1 10*3/uL (0.0-0.4); EOS % 2.7 % (1.0-4.0); LYMPH # 1.5 10*3/uL (1.3-4.4); LYMPH % 33.4 % (27.0-41.0); MEAN CELL VOLUME 80.6 fl (80.0-94.0); MEAN CORPUSCULAR HGB 22.9 pg (27.0-31.0); MEAN CORPUSCULAR HGB CONC 28.4 g/dl (33.0-37.0); MEAN PLATELET VOLUME 10.9 fl (9.6-12.3); MONO # 0.5 10*3/uL (0.1-1.0); MONO % 11.7 % (3.0-9.0); NEUT # 2.3 10*3/uL (2.3-7.9); NEUT % 51.2 % (47.0-73.0); PLATELET COUNT AUTOMATED 106 10*3/uL (130-400); RED CELL DISTRI WIDTH 18.5 % (0-14.5); WHITE BLOOD COUNT 4.4 10*3/uL (4.8-10.8)
[2020-10-10] MEDS ORDERED: CARAFATE1 G1 PO (23:15)
[2020-10-11 06:21] LABS: BASO % 0.4 % (0.0-1.0); EOS # 0.1 10*3/uL (0.0-0.4); EOS % 2.8 % (1.0-4.0); HEMATOCRIT 24.8 % (42.0-52.0); LYMPH # 1.4 10*3/uL (1.3-4.4); LYMPH % 30.9 % (27.0-41.0); MEAN CORPUSCULAR HGB 22.9 pg (27.0-31.0); MEAN CORPUSCULAR HGB CONC 28.6 g/dl (33.0-37.0); MEAN PLATELET VOLUME 12.2 fl (9.6-12.3); MONO # 0.6 10*3/uL (0.1-1.0); MONO % 12.4 % (3.0-9.0); NEUT # 2.4 10*3/uL (2.3-7.9); NEUT % 53.1 % (47.0-73.0); PLATELET COUNT AUTOMATED 114 10*3/uL (130-400); RED CELL DISTRI WIDTH 18.5 % (0-14.5); WHITE BLOOD COUNT 4.6 10*3/uL (4.8-10.8)
[2020-10-11 06:37] LABS: ALBUMIN 3.1 gm/dl (3.1-4.5); ALKALINE PHOSPHATASE 58 U/L (45-117); BUN 11 mg/dl (7-24); CHLORIDE 110 mmol/L (98-107); CREATININE 0.83 mg/dL (0.70-1.30); POTASSIUM 3.8 mmol/L (3.5-5.1); SGOT/AST 34 IU/L (3-35); SGPT/ALT 49 U/L (12-78); SODIUM 142 mmol/L (136-145); TOTAL PROTEIN 6.5 gm/dL (6.4-8.2)
[2020-10-11 08:00] VITALS: BP 145/83
[2020-10-11 12:00] VITALS: BP 153/79
== END 2020-10-11 13:45 | disposition home or self-care (01) ==
LOC: ED 14:35 → EDHOLD 17:04 → 5E 21:35
PROVIDERS: Internal Medicine; Nurse Practitioner; ADMIT Internal Medicine; ATTEND Internal Medicine
DX: D50.9 Iron deficiency anemia, unspecified (principal); R42 Dizziness and giddiness; R53.1 Weakness; K21.9 Gastro-esophageal reflux disease without esophagitis; D61.818 Other pancytopenia; E11.65 Type 2 diabetes mellitus with hyperglycemia; E87.8 Other disorders of electrolyte and fluid balance, not elsewhere classified; E87.2 Acidosis; R74.01 Elevation of levels of liver transaminase levels; E66.3 Overweight; F10.10 Alcohol abuse, uncomplicated; R01.1 Cardiac murmur, unspecified; Z98.890 Other specified postprocedural states; Z68.28 Body mass index [BMI] 28.0-28.9, adult

== ENCOUNTER → 2020-10-10 | Outpatient (CLI) | payer BC ==
[~2020-10-10] MED LIST changes: +CARAFATE1 G1 PO; +Carafate1 GM PO
[2020-10-10 12:08] LABS: HEMATOCRIT 22.6 % (42.0-52.0); MEAN CELL VOLUME 81.3 fl (80.0-94.0); MEAN CORPUSCULAR HGB 21.6 pg (27.0-31.0); MEAN CORPUSCULAR HGB CONC 26.5 g/dl (33.0-37.0); MEAN PLATELET VOLUME 11.6 fl (9.6-12.3); PLATELET COUNT AUTOMATED 121 10*3/uL (130-400); RED BLOOD COUNT 2.78 10*6/uL (4.50-5.90); RED CELL DISTRI WIDTH 18.6 % (0-14.5); RETICULOCYTE % 3.71 % (0.50-2.50)
[2020-10-10 12:21] LABS: IRON 21 ug/dL (65-175); TOTAL IRON BINDING CAPACITY 557 ug/dl (250-450)
[2020-10-10 12:22] LABS: MICROCYTOSIS SLIGHT; PLATELET SUFFICIENCY LOW (NORMAL); TOTAL CELLS COUNTED 100 #CELLS
[2020-10-10 12:23] LABS: OVALOCYTES FEW; POLYCHROMASIA SLIGHT; SCHISTOCYTES FEW
== END | disposition home or self-care (01) ==
LOC: LAB 11:37
PROVIDERS: ATTEND Family Medicine
DX: E78.5 Hyperlipidemia, unspecified (principal); R53.83 Other fatigue; R79.89 Other specified abnormal findings of blood chemistry

== ENCOUNTER → 2020-12-05 | Outpatient (CLI) | payer BC ==
[~2020-12-05] MED LIST changes: +CARAFATE1 G1 PO; +Carafate1 GM PO
[2020-12-05 11:33] LABS: MEAN CELL VOLUME 96.3 fl (80.0-94.0); MEAN CORPUSCULAR HGB 28.9 pg (27.0-31.0); PLATELET COUNT AUTOMATED 104 10*3/uL (130-400); RED BLOOD COUNT 3.53 10*6/uL (4.50-5.90); RED CELL DISTRI WIDTH 19.2 % (0-14.5); RETICULOCYTE % 2.32 % (0.50-2.50)
[2020-12-05 11:45] LABS: BILIRUBIN 2+ (Negative); BLOOD Negative (Negative); CLARITY Cloudy (Clear); COLOR Dark Yellow (Yellow); GLUCOSE Negative (Negative); KETONE 1+ (Negative); LEUKO ESTERASE Trace (Negative); NITRITE Negative (Negative); SPECIFIC GRAVITY 1.025 (1.001-1.030)
[2020-12-05 11:50] LABS: OVALOCYTES FEW; POLYCHROMASIA SLIGHT; TOTAL CELLS COUNTED 100 #CELLS
[2020-12-05 11:51] LABS: PLATELET SUFFICIENCY LOW (NORMAL)
[2020-12-05 12:11] LABS: ALBUMIN 3.5 gm/dl (3.1-4.5); ALKALINE PHOSPHATASE 79 U/L (45-117); BUN 17 mg/dl (7-24); CHLORIDE 104 mmol/L (98-107); CHOLESTEROL 146 mg/dL (<200); CREATININE 1.27 mg/dL (0.70-1.30); GAMMA GLUTAMYL TRANSPEPTIDASE 416 U/L (15-85); HDL CHOLESTEROL 55 mg/dl (40-60); IRON 27 ug/dL (65-175); LDL CHOLESTEROL 74 mg/dL (9-159); POTASSIUM 4.3 mmol/L (3.5-5.1); SGOT/AST 142 IU/L (3-35); SGPT/ALT 134 U/L (12-78); SODIUM 134 mmol/L (136-145); TRIGLYCERIDES 86 mg/dl (<150); VLDL CHOLESTEROL 17 mg/dL (6-40)
[2020-12-05 12:20] LABS: TOTAL IRON BINDING CAPACITY 458 ug/dl (250-450); TOTAL PROTEIN 7.6 gm/dL (6.4-8.2)
[2020-12-05 13:28] LABS: VITAMIN D, 25-HYDROXY 62.1 ng/mL (30-100)
[2020-12-05 13:29] LABS: FERRITIN 51.2 ng/mL (22.0-322.0)
[2020-12-05 14:00] LABS: EPITHELIAL CELLS 0-2; WBC 0-2 wbc/hpf (0-5)
[2020-12-05 14:01] LABS: FINE GRANULAR CAST TNTC; RBC 0-2 rbc/hpf (0-2)
[2020-12-06 05:06] LABS: TOTAL PROTEIN, SERUM 7.3 g/dL (6.0-8.5)
[2020-12-06 15:07] LABS: ALBUMIN 3.7 g/dL (2.9-4.4); ALPHA-1-GLOBULIN 0.3 g/dL (0.0-0.4); ALPHA-2-GLOBULIN 0.7 g/dL (0.4-1.0); BETA GLOBULIN 1.5 g/dL (0.7-1.3); GAMMA GLOBULIN 1.2 g/dL (0.4-1.8); GLOBULIN, TOTAL 3.6 g/dL (2.2-3.9); M-SPIKE Not Observed g/dL (Not Observed)
== END | disposition home or self-care (01) ==
LOC: LAB 11:05
PROVIDERS: ATTEND Family Medicine
DX: E78.5 Hyperlipidemia, unspecified (principal); E55.9 Vitamin D deficiency, unspecified; R53.83 Other fatigue; R79.89 Other specified abnormal findings of blood chemistry

== ENCOUNTER 2021-02-20 16:00 | Inpatient (IN) | payer BC ==
[~2021-02-20] VITALS: Ht 187.9 cm; Wt 89.5 kg
[2021-02-20 16:06] VITALS: BP 147/76
[2021-02-20 16:44] LABS: BASO % 0.1 % (0.0-1.0); EOS # 0.1 10*3/uL (0.0-0.4); EOS % 1.1 % (1.0-4.0); HEMATOCRIT 24.6 % (42.0-52.0); LYMPH # 1.3 10*3/uL (1.3-4.4); LYMPH % 10.6 % (27.0-41.0); MEAN CELL VOLUME 88.2 fl (80.0-94.0); MEAN CORPUSCULAR HGB 27.2 pg (27.0-31.0); MEAN CORPUSCULAR HGB CONC 30.9 g/dl (33.0-37.0); MEAN PLATELET VOLUME 11.2 fl (9.6-12.3); MONO # 1.2 10*3/uL (0.1-1.0); NEUT # 9.4 10*3/uL (2.3-7.9); NEUT % 77.4 % (47.0-73.0); PLATELET COUNT AUTOMATED 130 10*3/uL (130-400); RED BLOOD COUNT 2.79 10*6/uL (4.50-5.90); RED CELL DISTRI WIDTH 15.3 % (0-14.5); WHITE BLOOD COUNT 12.2 10*3/uL (4.8-10.8)
[2021-02-20 16:59] LABS: ALBUMIN 2.8 gm/dl (3.1-4.5); ALKALINE PHOSPHATASE 80 U/L (45-117); BUN 25 mg/dl (7-24); CHLORIDE 101 mmol/L (98-107); CREATININE 1.21 mg/dL (0.70-1.30); POTASSIUM 3.9 mmol/L (3.5-5.1); SGOT/AST 21 IU/L (3-35); SGPT/ALT 36 U/L (12-78); SODIUM 131 mmol/L (136-145); TOTAL PROTEIN 7.2 gm/dL (6.4-8.2)
[2021-02-20] MEDS ORDERED: DOXYCYCLINE MO100 MG PO (18:15)
[2021-02-20] MEDS ORDERED: VENTOLIN 02.5 MG/3 M INH (18:15)
[2021-02-20 19:33] VITALS: BP 134/81
[2021-02-20 22:02] VITALS: BP 137/79
[2021-02-20 22:39] LABS: BASO % 0.1 % (0.0-1.0); EOS # 0.1 10*3/uL (0.0-0.4); EOS % 1.4 % (1.0-4.0); HEMATOCRIT 24.6 % (42.0-52.0); LYMPH # 1.6 10*3/uL (1.3-4.4); LYMPH % 15.4 % (27.0-41.0); MEAN CELL VOLUME 89.5 fl (80.0-94.0); MEAN CORPUSCULAR HGB 26.9 pg (27.0-31.0); MEAN CORPUSCULAR HGB CONC 30.1 g/dl (33.0-37.0); MEAN PLATELET VOLUME 11.8 fl (9.6-12.3); MONO # 1.1 10*3/uL (0.1-1.0); MONO % 10.2 % (3.0-9.0); NEUT # 7.4 10*3/uL (2.3-7.9); NEUT % 72.1 % (47.0-73.0); PLATELET COUNT AUTOMATED 131 10*3/uL (130-400); RED BLOOD COUNT 2.75 10*6/uL (4.50-5.90); RED CELL DISTRI WIDTH 15.3 % (0-14.5); WHITE BLOOD COUNT 10.3 10*3/uL (4.8-10.8)
[2021-02-20 23:13] VITALS: BP 148/79
[2021-02-20 23:32] VITALS: BP 122/76
[2021-02-21 06:02] LABS: BASO % 0.1 % (0.0-1.0); EOS # 0.1 10*3/uL (0.0-0.4); EOS % 1.1 % (1.0-4.0); HEMATOCRIT 24.6 % (42.0-52.0); LYMPH # 1.3 10*3/uL (1.3-4.4); LYMPH % 13.3 % (27.0-41.0); MEAN CELL VOLUME 89.1 fl (80.0-94.0); MEAN CORPUSCULAR HGB 26.4 pg (27.0-31.0); MEAN CORPUSCULAR HGB CONC 29.7 g/dl (33.0-37.0); MEAN PLATELET VOLUME 11.9 fl (9.6-12.3); MONO # 1.1 10*3/uL (0.1-1.0); NEUT # 7.4 10*3/uL (2.3-7.9); NEUT % 73.9 % (47.0-73.0); PLATELET COUNT AUTOMATED 127 10*3/uL (130-400); RED BLOOD COUNT 2.76 10*6/uL (4.50-5.90)
[2021-02-21 06:05] LABS: ALBUMIN 2.7 gm/dl (3.1-4.5); ALKALINE PHOSPHATASE 76 U/L (45-117); CHLORIDE 102 mmol/L (98-107); CHOLESTEROL 106 mg/dL (<200); CREATININE 0.89 mg/dL (0.70-1.30); FREE T4 0.98 ng/dl (0.76-1.46); LDL CHOLESTEROL 60 mg/dL (9-159); POTASSIUM 3.9 mmol/L (3.5-5.1); SGOT/AST 25 IU/L (3-35); SGPT/ALT 36 U/L (12-78); SODIUM 134 mmol/L (136-145); TOTAL PROTEIN 7.1 gm/dL (6.4-8.2); TRIGLYCERIDES 91 mg/dl (<150)
[2021-02-21 06:10] LABS: THYROID STIM HORMONE (HS) 0.577 uIU/ml (0.358-4.75)
[2021-02-21 06:13] LABS: BUN 15 mg/dl (7-24)
[2021-02-21 07:52] LABS: VITAMIN D, 25-HYDROXY 47.6 ng/mL (30-100)
[2021-02-21 08:00] VITALS: BP 116/71
[2021-02-21 09:28] LABS: INTERNATIONAL NORM RATIO 1.1 (2.0-3.5)
[2021-02-21 12:00] VITALS: BP 145/88
[2021-02-21 16:10] VITALS: BP 139/77
[2021-02-21 16:25] VITALS: BP 144/78
[2021-02-21 16:40] VITALS: BP 148/68
[2021-02-21 20:00] VITALS: BP 144/76
[2021-02-22] VITALS: BP 146/80; BP 164/79
[2021-02-22 06:22] LABS: BASO % 0.3 % (0.0-1.0); EOS # 0.1 10*3/uL (0.0-0.4); EOS % 1.5 % (1.0-4.0); HEMATOCRIT 25.1 % (42.0-52.0); LYMPH # 1.3 10*3/uL (1.3-4.4); LYMPH % 18.4 % (27.0-41.0); MEAN CORPUSCULAR HGB 26.9 pg (27.0-31.0); MEAN CORPUSCULAR HGB CONC 29.9 g/dl (33.0-37.0); MEAN PLATELET VOLUME 12.3 fl (9.6-12.3); MONO # 0.9 10*3/uL (0.1-1.0); NEUT # 4.9 10*3/uL (2.3-7.9); NEUT % 67.4 % (47.0-73.0); PLATELET COUNT AUTOMATED 145 10*3/uL (130-400); RED BLOOD COUNT 2.79 10*6/uL (4.50-5.90); WHITE BLOOD COUNT 7.2 10*3/uL (4.8-10.8)
[2021-02-22 06:28] LABS: BUN 9 mg/dl (7-24); CHLORIDE 106 mmol/L (98-107); CREATININE 0.84 mg/dL (0.70-1.30); POTASSIUM 3.6 mmol/L (3.5-5.1); SODIUM 137 mmol/L (136-145)
[2021-02-22 08:00] VITALS: BP 121/64
[2021-02-22 12:00] VITALS: BP 112/71
[2021-02-22 16:00] VITALS: BP 110/68
[2021-02-22 20:00] VITALS: BP 127/68
[2021-02-23] VITALS: BP 130/75
[2021-02-23 06:17] LABS: BASO % 0.2 % (0.0-1.0); EOS # 0.1 10*3/uL (0.0-0.4); EOS % 1.3 % (1.0-4.0); HEMATOCRIT 25.3 % (42.0-52.0); LYMPH % 16.1 % (27.0-41.0); MEAN CELL VOLUME 88.5 fl (80.0-94.0); MEAN CORPUSCULAR HGB 26.2 pg (27.0-31.0); MEAN CORPUSCULAR HGB CONC 29.6 g/dl (33.0-37.0); MEAN PLATELET VOLUME 11.8 fl (9.6-12.3); MONO # 0.9 10*3/uL (0.1-1.0); MONO % 13.8 % (3.0-9.0); NEUT # 4.3 10*3/uL (2.3-7.9); PLATELET COUNT AUTOMATED 139 10*3/uL (130-400); RED BLOOD COUNT 2.86 10*6/uL (4.50-5.90); RED CELL DISTRI WIDTH 14.7 % (0-14.5); WHITE BLOOD COUNT 6.3 10*3/uL (4.8-10.8)
[2021-02-23 07:05] LABS: ALBUMIN 2.6 gm/dl (3.1-4.5); ALKALINE PHOSPHATASE 74 U/L (45-117); BUN 6 mg/dl (7-24); CHLORIDE 108 mmol/L (98-107); CREATININE 0.74 mg/dL (0.70-1.30); POTASSIUM 3.4 mmol/L (3.5-5.1); SGOT/AST 41 IU/L (3-35); SGPT/ALT 53 U/L (12-78); SODIUM 139 mmol/L (136-145); TOTAL PROTEIN 6.7 gm/dL (6.4-8.2)
[2021-02-23 08:00] VITALS: BP 130/57
[2021-02-23 12:00] VITALS: BP 133/71
[2021-02-23] MEDS ORDERED: CARAFATE1 G1 PO (12:14)
[2021-02-23] MEDS ORDERED: QUALITY CHOICE81 M1 PO (12:16)
[2021-02-23] MEDS ORDERED: PROTONIX40 MG PO (12:16)
[2021-02-23] MEDS ORDERED: FLAGYL500 MG PO (12:17)
== END 2021-02-23 14:49 | disposition home or self-care (01) | DRG 378 ==
LOC: ED 16:00 → EDHOLD 17:35 → 5E 17:35 → EDHOLD 17:53 → 5E 23:04
PROVIDERS: Hospitalist; Internal Medicine; Internal Medicine Gastroenterology; Student in an Organized Health Care Education/Training Program; ADMIT Internal Medicine; ATTEND Internal Medicine
PROC: 0DB78ZX Excision of Stomach, Pylorus, Via Natural or Artificial Opening Endoscopic, Diagnostic (ICD-10-PCS; principal; 2021-02-21)
PROC: 0DBL8ZX Excision of Transverse Colon, Via Natural or Artificial Opening Endoscopic, Diagnostic (ICD-10-PCS; 2021-02-21)
DX: K29.71 Gastritis, unspecified, with bleeding (principal); K55.9 Vascular disorder of intestine, unspecified; E44.0 Moderate protein-calorie malnutrition; E87.1 Hypo-osmolality and hyponatremia; R65.10 Systemic inflammatory response syndrome (SIRS) of non-infectious origin without acute organ dysfunction; K76.6 Portal hypertension; I77.4 Celiac artery compression syndrome; I85.00 Esophageal varices without bleeding; K21.9 Gastro-esophageal reflux disease without esophagitis; D50.9 Iron deficiency anemia, unspecified; I35.0 Nonrheumatic aortic (valve) stenosis; Z96.643 Presence of artificial hip joint, bilateral; K74.60 Unspecified cirrhosis of liver; K44.9 Diaphragmatic hernia without obstruction or gangrene; R01.1 Cardiac murmur, unspecified; E11.65 Type 2 diabetes mellitus with hyperglycemia; Z98.1 Arthrodesis status; Z79.899 Other long term (current) drug therapy; Z68.25 Body mass index [BMI] 25.0-25.9, adult

== ENCOUNTER 2021-05-19 08:30 | Inpatient (IN) | payer OTHER ==
[2021-05-19] VITALS (21 sets, daily range): BP systolic 12–142; BP diastolic 59–78
[~2021-05-19] VITALS: Ht 187.9 cm; Wt 95.9 kg
[~2021-05-19 08:30] MED LIST changes: +DOXYCYCLINE MO100 MG PO; +FLAGYL500 MG PO; +PROTONIX40 MG PO; +QUALITY CHOICE81 M1 PO; +VENTOLIN 02.5 MG/3 M INH
[2021-05-19 09:17] LABS: MEAN CELL VOLUME 83.5 fl (80.0-94.0); MEAN CORPUSCULAR HGB CONC 27.6 g/dl (33.0-37.0); PLATELET COUNT AUTOMATED 127 10*3/uL (130-400); RED BLOOD COUNT 2.43 10*6/uL (4.50-5.90); RED CELL DISTRI WIDTH 15.7 % (0-14.5); WHITE BLOOD COUNT 5.7 10*3/uL (4.8-10.8)
[2021-05-19 09:25] LABS: HEMATOCRIT 20.3 % (42.0-52.0)
[2021-05-19 09:37] LABS: ALBUMIN 3.3 gm/dl (3.1-4.5); ALKALINE PHOSPHATASE 69 U/L (45-117); BUN 14 mg/dl (7-24); CHLORIDE 107 mmol/L (98-107); CREATININE 0.88 mg/dL (0.70-1.30); IRON 15 ug/dL (65-175); LIPASE 218 U/L (73-393); POTASSIUM 4.1 mmol/L (3.5-5.1); SGOT/AST 35 IU/L (3-35); SGPT/ALT 47 U/L (12-78); SODIUM 136 mmol/L (136-145); TOTAL IRON BINDING CAPACITY 543 ug/dl (250-450); TOTAL PROTEIN 6.9 gm/dL (6.4-8.2)
[2021-05-19 09:41] LABS: PLATELET SUFFICIENCY NORMAL (NORMAL); TOTAL CELLS COUNTED 100 #CELLS; TROPONIN I < 0.015 ng/ml (<0.045)
[2021-05-19 09:44] LABS: POLYCHROMASIA SLIGHT
[2021-05-19] MEDS ORDERED: Carafate1 GM PO (15:26)
[2021-05-19] MEDS ORDERED: B12 ACTIVE1000 MCG PO (15:27)
[2021-05-19] MEDS ORDERED: DAILY VALUE1 EACH PO (15:27)
[2021-05-19 20:27] LABS: HEMATOCRIT 23.4 % (42.0-52.0); MEAN CELL VOLUME 82.1 fl (80.0-94.0); MEAN CORPUSCULAR HGB 24.2 pg (27.0-31.0); MEAN CORPUSCULAR HGB CONC 29.5 g/dl (33.0-37.0); MEAN PLATELET VOLUME 11.6 fl (9.6-12.3); PLATELET COUNT AUTOMATED 124 10*3/uL (130-400); RED BLOOD COUNT 2.85 10*6/uL (4.50-5.90); RED CELL DISTRI WIDTH 15.5 % (0-14.5); WHITE BLOOD COUNT 5.8 10*3/uL (4.8-10.8)
[2021-05-19 20:48] LABS: BASOPHILS 1 % (0-1); TOTAL CELLS COUNTED 100 #CELLS
[2021-05-19 20:49] LABS: OVALOCYTES FEW; PLATELET SUFFICIENCY NORMAL (NORMAL)
[2021-05-20] VITALS: BP 135/75
[2021-05-20 00:42] VITALS: BP 132/72
[2021-05-20 06:16] LABS: BASO % 0.3 % (0.0-1.0); EOS # 0.3 10*3/uL (0.0-0.4); EOS % 4.1 % (1.0-4.0); HEMATOCRIT 25.7 % (42.0-52.0); LYMPH # 1.3 10*3/uL (1.3-4.4); LYMPH % 21.1 % (27.0-41.0); MEAN CELL VOLUME 83.4 fl (80.0-94.0); MEAN PLATELET VOLUME 11.9 fl (9.6-12.3); MONO # 0.6 10*3/uL (0.1-1.0); MONO % 9.4 % (3.0-9.0); NEUT % 64.8 % (47.0-73.0); PLATELET COUNT AUTOMATED 121 10*3/uL (130-400); RED BLOOD COUNT 3.08 10*6/uL (4.50-5.90); RED CELL DISTRI WIDTH 15.3 % (0-14.5); WHITE BLOOD COUNT 6.2 10*3/uL (4.8-10.8)
[2021-05-20 06:30] LABS: CHLORIDE 109 mmol/L (98-107); POTASSIUM 3.7 mmol/L (3.5-5.1); SODIUM 140 mmol/L (136-145)
[2021-05-20 06:38] LABS: ALBUMIN 3.1 gm/dl (3.1-4.5); ALKALINE PHOSPHATASE 66 U/L (45-117); BUN 9 mg/dl (7-24); CREATININE 0.67 mg/dL (0.70-1.30); SGOT/AST 36 IU/L (3-35); SGPT/ALT 47 U/L (12-78); TOTAL PROTEIN 6.6 gm/dL (6.4-8.2)
[2021-05-20 06:39] LABS: ACT PARTIAL THROMBO TIME 26.8 SECONDS (20.0-32.1); INTERNATIONAL NORM RATIO 1.1 (2.0-3.5)
[2021-05-20 08:00] VITALS: BP 141/71
== END 2021-05-20 10:58 | disposition home or self-care (01) | DRG 241 ==
LOC: ED 08:30 → EDHOLD 10:08 → ICCU 14:14
PROVIDERS: Emergency Medicine; Student in an Organized Health Care Education/Training Program; ADMIT Internal Medicine; ATTEND Internal Medicine
PROC: 30233N1 Transfusion of Nonautologous Red Blood Cells into Peripheral Vein, Percutaneous Approach (ICD-10-PCS; principal; 2021-05-19)
DX: K29.71 Gastritis, unspecified, with bleeding (principal); E11.65 Type 2 diabetes mellitus with hyperglycemia; D69.6 Thrombocytopenia, unspecified; E87.2 Acidosis; Z96.643 Presence of artificial hip joint, bilateral; R65.10 Systemic inflammatory response syndrome (SIRS) of non-infectious origin without acute organ dysfunction; K21.9 Gastro-esophageal reflux disease without esophagitis; E66.3 Overweight; E44.0 Moderate protein-calorie malnutrition; Z79.51 Long term (current) use of inhaled steroids; Z79.899 Other long term (current) drug therapy; Z68.27 Body mass index [BMI] 27.0-27.9, adult; D50.0 Iron deficiency anemia secondary to blood loss (chronic)

== ENCOUNTER 2021-06-28 09:48 | Inpatient (IN) | payer OTHER ==
[2021-06-28] VITALS (16 sets, daily range): BP systolic 121–151; BP diastolic 62–81
[~2021-06-28] VITALS: Ht 187.9 cm; Wt 100.0 kg
[~2021-06-28 09:48] MED LIST changes: +B12 ACTIVE1000 MCG PO; +DAILY VALUE1 EACH PO
[2021-06-28 10:12] LABS: MEAN CELL VOLUME 82.3 fl (80.0-94.0); MEAN CORPUSCULAR HGB 21.7 pg (27.0-31.0); MEAN CORPUSCULAR HGB CONC 26.3 g/dl (33.0-37.0); PLATELET COUNT AUTOMATED 98 10*3/uL (130-400); RED BLOOD COUNT 2.26 10*6/uL (4.50-5.90); RED CELL DISTRI WIDTH 17.1 % (0-14.5); WHITE BLOOD COUNT 5.4 10*3/uL (4.8-10.8)
[2021-06-28 10:18] LABS: HEMATOCRIT 18.6 % (42.0-52.0)
[2021-06-28 10:30] LABS: ALBUMIN 2.9 gm/dl (3.1-4.5); ALKALINE PHOSPHATASE 56 U/L (45-117); ATYPICAL LYMPHS 2 % (0-0); BUN 15 mg/dl (7-24); CHLORIDE 109 mmol/L (98-107); CREATININE 0.93 mg/dL (0.70-1.30); POTASSIUM 3.9 mmol/L (3.5-5.1); SGOT/AST 32 IU/L (3-35); SGPT/ALT 44 U/L (12-78); SODIUM 138 mmol/L (136-145); TOTAL CELLS COUNTED 100 #CELLS; TOTAL PROTEIN 6.6 gm/dL (6.4-8.2)
[2021-06-28 10:31] LABS: BURR CELLS FEW; MICROCYTOSIS SLIGHT; PLATELET SUFFICIENCY LOW (NORMAL)
[2021-06-28 10:32] LABS: OVALOCYTES FEW
[2021-06-28 10:48] LABS: ACT PARTIAL THROMBO TIME 25.8 SECONDS (20.0-32.1); INTERNATIONAL NORM RATIO 1.1 (2.0-3.5)
[2021-06-29] VITALS (15 sets, daily range): BP systolic 94–139; BP diastolic 51–82
[2021-06-29 06:37] LABS: HEMATOCRIT 22.3 % (42.0-52.0); MEAN CELL VOLUME 82.3 fl (80.0-94.0); MEAN CORPUSCULAR HGB 23.2 pg (27.0-31.0); MEAN CORPUSCULAR HGB CONC 28.3 g/dl (33.0-37.0); MEAN PLATELET VOLUME 12.1 fl (9.6-12.3); NUCLEATED RED BLOOD CELL 0.4 % (0.0-0.0); PLATELET COUNT AUTOMATED 104 10*3/uL (130-400); RED BLOOD COUNT 2.71 10*6/uL (4.50-5.90); RED CELL DISTRI WIDTH 16.9 % (0-14.5); WHITE BLOOD COUNT 4.8 10*3/uL (4.8-10.8)
[2021-06-29 06:38] LABS: CHLORIDE 112 mmol/L (98-107); POTASSIUM 3.8 mmol/L (3.5-5.1); SODIUM 141 mmol/L (136-145)
[2021-06-29 06:45] LABS: ALBUMIN 2.9 gm/dl (3.1-4.5); ALKALINE PHOSPHATASE 54 U/L (45-117); BUN 9 mg/dl (7-24); CREATININE 0.78 mg/dL (0.70-1.30); SGOT/AST 22 IU/L (3-35); SGPT/ALT 39 U/L (12-78); TOTAL PROTEIN 6.3 gm/dL (6.4-8.2)
[2021-06-29 07:26] LABS: PLATELET SUFFICIENCY LOW (NORMAL); TOTAL CELLS COUNTED 100 #CELLS
[2021-06-29 07:27] LABS: POLYCHROMASIA SLIGHT
[2021-06-30] VITALS (10 sets, daily range): BP systolic 108–151; BP diastolic 52–83
[2021-06-30 06:37] LABS: BASO % 0.2 % (0.0-1.0); EOS # 0.2 10*3/uL (0.0-0.4); EOS % 3.9 % (1.0-4.0); HEMATOCRIT 24.2 % (42.0-52.0); LYMPH % 19.8 % (27.0-41.0); MEAN CELL VOLUME 82.3 fl (80.0-94.0); MEAN CORPUSCULAR HGB 23.8 pg (27.0-31.0); MEAN CORPUSCULAR HGB CONC 28.9 g/dl (33.0-37.0); MEAN PLATELET VOLUME 11.2 fl (9.6-12.3); MONO # 0.5 10*3/uL (0.1-1.0); MONO % 10.4 % (3.0-9.0); NEUT # 3.3 10*3/uL (2.3-7.9); NEUT % 65.1 % (47.0-73.0); PLATELET COUNT AUTOMATED 101 10*3/uL (130-400); RED BLOOD COUNT 2.94 10*6/uL (4.50-5.90); RED CELL DISTRI WIDTH 17.1 % (0-14.5); WHITE BLOOD COUNT 5.1 10*3/uL (4.8-10.8)
[2021-06-30 06:51] LABS: ALBUMIN 2.8 gm/dl (3.1-4.5); BUN 8 mg/dl (7-24); CHLORIDE 109 mmol/L (98-107); POTASSIUM 3.8 mmol/L (3.5-5.1); SODIUM 140 mmol/L (136-145)
[2021-06-30 06:55] LABS: ALKALINE PHOSPHATASE 60 U/L (45-117); CREATININE 0.74 mg/dL (0.70-1.30); SGOT/AST 27 IU/L (3-35); SGPT/ALT 38 U/L (12-78); TOTAL PROTEIN 6.5 gm/dL (6.4-8.2)
[2021-06-30] MEDS ORDERED: Carafate1 GM PO (14:17)
[2021-06-30] MEDS ORDERED: PROPRANOLOL HCL10 MG PO (14:17)
== END 2021-06-30 18:00 | disposition home or self-care (01) | DRG 241 ==
LOC: ED 09:48 → 5E 11:01 → EDHOLD 11:01 → 5E 14:35
PROVIDERS: Emergency Medicine; Internal Medicine; Registered Nurse; ADMIT Student in an Organized Health Care Education/Training Program; ATTEND Student in an Organized Health Care Education/Training Program
PROC: 30233N1 Transfusion of Nonautologous Red Blood Cells into Peripheral Vein, Percutaneous Approach (ICD-10-PCS; 2021-06-28)
PROC: 0DB78ZX Excision of Stomach, Pylorus, Via Natural or Artificial Opening Endoscopic, Diagnostic (ICD-10-PCS; principal; 2021-06-29)
DX: K29.01 Acute gastritis with bleeding (principal); D62 Acute posthemorrhagic anemia; K21.9 Gastro-esophageal reflux disease without esophagitis; I24.8 Other forms of acute ischemic heart disease; E11.65 Type 2 diabetes mellitus with hyperglycemia; F10.10 Alcohol abuse, uncomplicated; K76.6 Portal hypertension; I35.0 Nonrheumatic aortic (valve) stenosis; I85.10 Secondary esophageal varices without bleeding; Z96.643 Presence of artificial hip joint, bilateral; Z98.1 Arthrodesis status; Z82.49 Family history of ischemic heart disease and other diseases of the circulatory system; Z83.6 Family history of other diseases of the respiratory system; Z79.899 Other long term (current) drug therapy

== ENCOUNTER → 2021-07-05 | Outpatient (CLI) | payer OTHER ==
[~2021-07-05] MED LIST changes: +PROPRANOLOL HCL10 MG PO
[2021-07-05 19:27] LABS: BASO % 0.3 % (0.0-1.0); EOS # 0.1 10*3/uL (0.0-0.4); EOS % 2.4 % (1.0-4.0); LYMPH # 1.1 10*3/uL (1.3-4.4); LYMPH % 28.8 % (27.0-41.0); MEAN CELL VOLUME 85.2 fl (80.0-94.0); MEAN CORPUSCULAR HGB 24.3 pg (27.0-31.0); MEAN CORPUSCULAR HGB CONC 28.5 g/dl (33.0-37.0); MEAN PLATELET VOLUME 11.6 fl (9.6-12.3); MONO # 0.4 10*3/uL (0.1-1.0); MONO % 11.6 % (3.0-9.0); NEUT # 2.1 10*3/uL (2.3-7.9); NEUT % 56.6 % (47.0-73.0); PLATELET COUNT AUTOMATED 119 10*3/uL (130-400); RED BLOOD COUNT 3.17 10*6/uL (4.50-5.90); RED CELL DISTRI WIDTH 18.2 % (0-14.5); WHITE BLOOD COUNT 3.7 10*3/uL (4.8-10.8)
== END | disposition home or self-care (01) ==
LOC: LAB 18:29
PROVIDERS: ATTEND Student in an Organized Health Care Education/Training Program
DX: E87.2 Acidosis (principal); D62 Acute posthemorrhagic anemia

== ENCOUNTER 2021-08-17 15:13 | Emergency (ER) | payer BC ==
[~2021-08-17] VITALS: Ht 187.9 cm; Wt 97.5 kg
[2021-08-17 18:15] VITALS: BP 137/73
[2021-08-17 18:42] VITALS: BP 142/75
[2021-08-17 19:00] VITALS: BP 147/79
[2021-08-17 20:40] VITALS: BP 151/72
== END 2021-08-17 21:04 | disposition home or self-care (01) ==
LOC: ED 15:13
DX: D64.9 Anemia, unspecified (principal); D61.818 Other pancytopenia

== ENCOUNTER → 2021-08-17 | Outpatient (CLI) | payer BC ==
[2021-08-17 12:21] LABS: MEAN CELL VOLUME 81.6 fl (80.0-94.0); MEAN CORPUSCULAR HGB 22.4 pg (27.0-31.0); MEAN CORPUSCULAR HGB CONC 27.5 g/dl (33.0-37.0); MEAN PLATELET VOLUME 11.4 fl (9.6-12.3); PLATELET COUNT AUTOMATED 106 10*3/uL (130-400); RED BLOOD COUNT 2.94 10*6/uL (4.50-5.90); RED CELL DISTRI WIDTH 18.3 % (0-14.5); RETICULOCYTE % 2.58 % (0.50-2.50); WHITE BLOOD COUNT 4.6 10*3/uL (4.8-10.8)
[2021-08-17 12:42] LABS: PLATELET SUFFICIENCY LOW (NORMAL); POLYCHROMASIA SLIGHT; TOTAL CELLS COUNTED 100 #CELLS
[2021-08-17 12:43] LABS: BILIRUBIN 1+ (Negative); BLOOD Negative (Negative); CLARITY Clear (Clear); COLOR Dark Yellow (Yellow); GLUCOSE 1+ (Negative); KETONE Trace (Negative); LEUKO ESTERASE Negative (Negative); NITRITE Negative (Negative); PH 5.5 (4.5-8.0); SPECIFIC GRAVITY >= 1.030 (1.001-1.030)
[2021-08-17 12:50] LABS: ALBUMIN 2.9 gm/dl (3.1-4.5); ALKALINE PHOSPHATASE 65 U/L (45-117); BUN 13 mg/dl (7-24); CHLORIDE 107 mmol/L (98-107); CHOLESTEROL 128 mg/dL (<200); CREATININE 0.72 mg/dL (0.70-1.30); GAMMA GLUTAMYL TRANSPEPTIDASE 182 U/L (15-85); IRON 24 ug/dL (65-175); LDL CHOLESTEROL 59 mg/dL (9-159); POTASSIUM 4.4 mmol/L (3.5-5.1); SGOT/AST 32 IU/L (3-35); SGPT/ALT 42 U/L (12-78); SODIUM 140 mmol/L (136-145); TOTAL PROTEIN 7.2 gm/dL (6.4-8.2); TRIGLYCERIDES 48 mg/dl (<150)
[2021-08-17 12:56] LABS: THYROID STIM HORMONE (HS) 0.787 uIU/ml (0.358-4.75); TOTAL IRON BINDING CAPACITY 521 ug/dl (250-450)
[2021-08-17 14:00] LABS: BACTERIA TRACE; MUCOUS 1+; WBC 0-2 wbc/hpf (0-5)
== END | disposition home or self-care (01) ==
LOC: LAB 11:51
PROVIDERS: ATTEND Family Medicine
DX: E11.9 Type 2 diabetes mellitus without complications (principal); R79.89 Other specified abnormal findings of blood chemistry; R53.83 Other fatigue; E78.5 Hyperlipidemia, unspecified

== ENCOUNTER → 2021-10-16 | Outpatient (CLI) | payer BC ==
[2021-10-16 14:54] LABS: BILIRUBIN 1+ (Negative); BLOOD Negative (Negative); CLARITY Clear (Clear); COLOR Dark Yellow (Yellow); GLUCOSE 1+ (Negative); KETONE Trace (Negative); LEUKO ESTERASE Negative (Negative); NITRITE Negative (Negative); SPECIFIC GRAVITY >= 1.030 (1.001-1.030)
[2021-10-16 15:03] LABS: BASO % 0.5 % (0.0-1.0); EOS # 0.1 10*3/uL (0.0-0.4); EOS % 2.4 % (1.0-4.0); HEMATOCRIT 29.5 % (42.0-52.0); LYMPH # 0.9 10*3/uL (1.3-4.4); LYMPH % 24.4 % (27.0-41.0); MEAN CELL VOLUME 85.8 fl (80.0-94.0); MEAN CORPUSCULAR HGB CONC 29.2 g/dl (33.0-37.0); MEAN PLATELET VOLUME 12.3 fl (9.6-12.3); MONO # 0.5 10*3/uL (0.1-1.0); MONO % 13.4 % (3.0-9.0); NEUT # 2.2 10*3/uL (2.3-7.9); PLATELET COUNT AUTOMATED 99 10*3/uL (130-400); RED BLOOD COUNT 3.44 10*6/uL (4.50-5.90); RED CELL DISTRI WIDTH 20.2 % (0-14.5); WHITE BLOOD COUNT 3.7 10*3/uL (4.8-10.8)
[2021-10-16 15:04] LABS: ALBUMIN 3.2 gm/dl (3.1-4.5); ALKALINE PHOSPHATASE 74 U/L (45-117); BUN 10 mg/dl (7-24); CHLORIDE 109 mmol/L (98-107); CHOLESTEROL 157 mg/dL (<200); CREATININE 0.83 mg/dL (0.70-1.30); GAMMA GLUTAMYL TRANSPEPTIDASE 297 U/L (15-85); IRON 17 ug/dL (65-175); LDL CHOLESTEROL 67 mg/dL (9-159); POTASSIUM 4.1 mmol/L (3.5-5.1); SGOT/AST 44 IU/L (3-35); SGPT/ALT 53 U/L (12-78); SODIUM 141 mmol/L (136-145); TOTAL IRON BINDING CAPACITY 530 ug/dl (250-450); TOTAL PROTEIN 6.9 gm/dL (6.4-8.2); TRIGLYCERIDES 61 mg/dl (<150)
[2021-10-16 15:06] LABS: BACTERIA TRACE; EPITHELIAL CELLS 0-2; MUCOUS 1+; WBC 0-2 wbc/hpf (0-5)
[2021-10-16 15:11] LABS: RETICULOCYTE % 2.44 % (0.50-2.50)
[2021-10-16 15:12] LABS: THYROID STIM HORMONE (HS) 0.804 uIU/ml (0.358-4.75)
[2021-10-16 15:43] LABS: LDH 162 U/L (87-241)
[2021-10-16 15:45] LABS: BETA-HCG, TUMOR MARKER < 1.0 mIU/mL (<1)
[2021-10-16 15:52] LABS: VITAMIN D, 25-HYDROXY 28.2 ng/mL (30-100)
[2021-10-16 15:53] LABS: FERRITIN 10.4 ng/mL (22.0-322.0)
== END | disposition home or self-care (01) ==
LOC: LAB 14:02
PROVIDERS: Family Medicine; ATTEND Urology
DX: R79.89 Other specified abnormal findings of blood chemistry (principal); R53.83 Other fatigue; E11.9 Type 2 diabetes mellitus without complications; E55.9 Vitamin D deficiency, unspecified

== ENCOUNTER → 2022-04-09 | Outpatient (CLI) | payer BC ==
[2022-04-09 12:28] LABS: BASO % 0.8 % (0.0-1.0); EOS # 0.1 10*3/uL (0.0-0.4); EOS % 2.3 % (1.0-4.0); HEMATOCRIT 36.4 % (42.0-52.0); LYMPH # 1.1 10*3/uL (1.3-4.4); MEAN CORPUSCULAR HGB 34.2 pg (27.0-31.0); MEAN CORPUSCULAR HGB CONC 33.5 g/dl (33.0-37.0); MEAN PLATELET VOLUME 11.3 fl (9.6-12.3); MONO # 0.6 10*3/uL (0.1-1.0); MONO % 15.8 % (3.0-9.0); NEUT % 51.8 % (47.0-73.0); PLATELET COUNT AUTOMATED 93 10*3/uL (130-400); RED BLOOD COUNT 3.57 10*6/uL (4.50-5.90); RED CELL DISTRI WIDTH 13.9 % (0-14.5); RETICULOCYTE % 2.43 % (0.50-2.50); WHITE BLOOD COUNT 3.9 10*3/uL (4.8-10.8)
[2022-04-09 12:42] LABS: BILIRUBIN 1+ (Negative); BLOOD Negative (Negative); CLARITY Clear (Clear); COLOR Dark Yellow (Yellow); GLUCOSE Negative (Negative); KETONE Trace (Negative); LEUKO ESTERASE Negative (Negative); NITRITE Negative (Negative); PH 5.5 (4.5-8.0); SPECIFIC GRAVITY >= 1.030 (1.001-1.030)
[2022-04-09 12:47] LABS: BUN 10 mg/dl (7-24); CHLORIDE 110 mmol/L (98-107); SODIUM 144 mmol/L (136-145)
[2022-04-09 12:51] LABS: ALKALINE PHOSPHATASE 65 U/L (45-117); CHOLESTEROL 156 mg/dL (<200); CREATININE 0.86 mg/dL (0.70-1.30); IRON 67 ug/dL (65-175); SGOT/AST 68 IU/L (3-35); SGPT/ALT 82 U/L (12-78); TOTAL PROTEIN 7.3 gm/dL (6.4-8.2); TRIGLYCERIDES 59 mg/dl (<150)
[2022-04-09 12:58] LABS: LDL CHOLESTEROL 65 mg/dL (9-159); THYROID STIM HORMONE (HS) 0.931 uIU/ml (0.358-4.75)
[2022-04-09 13:06] LABS: BACTERIA TRACE; EPITHELIAL CELLS 0-2; MUCOUS 2+
== END ==
LOC: LAB 12:02
PROVIDERS: ATTEND Family Medicine
DX: R79.89 Other specified abnormal findings of blood chemistry (principal); E78.5 Hyperlipidemia, unspecified; R53.83 Other fatigue; E11.9 Type 2 diabetes mellitus without complications